=== PATIENT | male | born 1955 | race Hispanic/Latino ===

== ENCOUNTER 2019-05-25 19:38 | Emergency (ER) | payer SELFPAY ==
[~2019-05-25] VITALS: Ht 177.8 cm; Wt 91.2 kg
--- OUTSIDE RECORDS SUMMARY | 2019-05-25 19:41 | XMS REPORT ---
[facility] Address Unknown Phone Unavailable Care Team Providers Care Nephrology Social Worker Name Role Phone Unavailable Unavailable Payers Payer Name Policy Type Policy Number Effective Date Expiration Date Problems This patient has no known problems. Allergies, Adverse Reactions, Alerts Allergy Name Allergy Type Status Severity Reaction(s) Onset Date Inactive Date Treating Clinician Comments No Known Allergies DA Active U 2018-11-19 00:00:00 No Known Allergies DA Active U 2016-04-20 00:00:00 Medications This patient has no known medications. Encounters Start Date/Time End Date/Time Encounter Type Admission Type Attending Clinicians Care Facility Care Department Encounter ID 2019-04-12 06:36:30 Inpatient [facility] [id number] 2019-06-16 00:00:00 2019-06-16 00:00:00 Outpatient [facility] [id number] 2019-05-18 11:44:28 2019-05-18 11:44:28 Emergency [facility] [id number] 2019-05-13 13:43:53 2019-05-13 13:43:53 Emergency [facility] [id number] 2019-05-13 10:29:15 2019-05-13 10:29:15 Emergency [facility] [id number] 2019-05-13 07:28:09 2019-05-13 07:28:09 Emergency [facility] [id number] 2019-05-06 00:00:00 2019-05-06 00:00:00 Outpatient [facility] [id number] 2019-04-11 08:18:09 2019-04-11 08:18:09 Emergency [facility] [id number] 2019-04-11 08:00:04 2019-04-11 08:00:04 Emergency [facility] [id number] 2019-04-11 07:25:20 2019-04-11 07:25:20 Inpatient [facility] [id number] 2018-07-24 00:00:00 2018-07-24 00:00:00 Outpatient [facility] [id number] 2018-06-25 08:36:07 2018-06-25 08:36:07 Outpatient [facility] [id number] 2018-06-17 00:00:00 2018-06-17 00:00:00 Outpatient [facility] [id number] 2018-06-01 00:00:00 2018-06-01 00:00:00 Outpatient [facility] [id number] 2018-05-01 00:00:00 2018-05-01 00:00:00 Outpatient [facility] [id number] 2018-04-21 12:00:35 2018-04-21 12:00:35 Outpatient [facility] [id number] 2018-04-21 11:36:36 2018-04-21 11:36:36 Outpatient [facility] [id number] 2018-04-21 00:00:00 2018-04-21 00:00:00 Outpatient [facility] [id number] 2018-04-09 00:00:00 2018-04-09 00:00:00 Outpatient [facility] [id number] 2018-03-31 09:22:37 2018-03-31 09:22:37 Outpatient [facility] [id number] 2018-03-21 13:39:02 2018-03-21 13:39:02 Outpatient [facility] [id number] 2018-03-18 15:06:02 2018-03-18 15:06:02 Outpatient [facility] [id number] 2018-03-12 10:49:29 2018-03-12 10:49:29 Outpatient [facility] [id number] 2018-01-23 13:36:04 2018-01-23 13:36:04 Outpatient [facility] [id number] 2018-01-23 11:17:57 2018-01-23 11:17:57 Outpatient [facility] [id number] 2017-12-13 14:33:02 2017-12-13 14:33:02 Outpatient [facility] [id number] 2017-12-10 13:58:35 2017-12-10 13:58:35 Outpatient [facility] [id number] 2017-12-10 13:42:22 2017-12-10 13:42:22 Outpatient [facility] [id number] 2017-12-03 00:00:00 2017-12-03 00:00:00 Outpatient [facility] [id number] 2017-11-26 00:00:00 2017-11-26 00:00:00 Outpatient [facility] [id number] 2017-11-26 00:00:00 2017-11-26 00:00:00 Outpatient [facility] [id number] 2017-10-15 14:19:14 2017-10-15 14:19:14 Outpatient [facility] [id number] 2017-10-15 14:08:21 2017-10-15 14:08:21 Outpatient [facility] [id number] 2017-10-09 00:00:00 2017-10-09 00:00:00 Outpatient [facility] [id number] 2017-10-01 08:21:34 2017-10-01 08:21:34 Outpatient [facility] [id number] 2017-09-18 10:35:47 2017-09-18 10:35:47 Outpatient [facility] [id number] 2017-08-25 08:10:47 2017-08-25 08:10:47 Outpatient [facility] [id number] 2017-08-07 10:51:21 2017-08-07 10:51:21 Outpatient [facility] [id number] 2017-07-15 00:00:00 2017-07-15 00:00:00 Outpatient [facility] [id number] 2017-07-04 13:15:31 2017-07-04 13:15:31 Outpatient [facility] [id number] 2017-06-13 07:05:32 2017-06-13 07:05:32 Outpatient [facility] [id number] 2017-06-12 11:24:50 2017-06-12 11:24:50 Outpatient [facility] [id number] 2017-06-12 00:00:00 2017-06-12 00:00:00 Outpatient [facility] [id number] 2017-05-30 13:27:26 2017-05-30 13:27:26 Outpatient [facility] [id number] 2017-05-30 00:00:00 2017-05-30 00:00:00 Outpatient [facility] [id number] 2017-05-22 08:59:39 2017-05-22 08:59:39 Outpatient [facility] [id number] 2017-05-22 08:08:50 2017-05-22 08:08:50 Outpatient [facility] [id number] 2017-05-15 08:58:21 2017-05-15 08:58:21 Outpatient [facility] [id number] 2017-05-15 00:00:00 2017-05-15 00:00:00 Outpatient [facility] [id number] 2017-05-09 00:00:00 2017-05-09 00:00:00 Outpatient [facility] [id number] 2017-05-07 09:07:25 2017-05-07 09:07:25 Outpatient [facility] [id number] 2017-05-02 13:27:29 2017-05-02 13:27:29 Outpatient [facility] [id number] 2017-05-02 10:35:29 2017-05-02 10:35:29 Outpatient [facility] [id number] 2017-05-02 09:51:15 2017-05-02 09:51:15 Outpatient [facility] [id number] 2017-04-22 09:39:48 2017-04-22 09:39:48 Outpatient [facility] [id number] 2017-04-16 00:00:00 2017-04-16 00:00:00 Outpatient [facility] [id number] 2017-04-14 00:00:00 2017-04-14 00:00:00 Outpatient [facility] [id number] 2017-04-11 00:00:00 2017-04-11 00:00:00 Outpatient [facility] [id number] 2017-04-10 10:06:25 2017-04-10 10:06:25 Outpatient [facility] [id number] 2017-04-09 11:29:14 2017-04-09 11:29:14 Outpatient [facility] [id number] 2017-03-28 13:32:51 2017-03-28 13:32:51 Outpatient [facility] [id number] 2017-03-28 00:00:00 2017-03-28 00:00:00 Outpatient [facility] [id number] 2017-03-14 14:15:13 2017-03-14 14:15:13 Outpatient [facility] [id number] 2017-03-14 00:00:00 2017-03-14 00:00:00 Outpatient [facility] [id number] 2017-03-12 07:55:40 2017-03-12 07:55:40 Outpatient [facility] [id number] 2017-03-11 10:16:05 2017-03-11 10:16:05 Outpatient [facility] [id number] 2017-03-11 09:49:11 2017-03-11 09:49:11 Outpatient [facility] [id number] 2017-03-07 10:22:03 2017-03-07 10:22:03 Outpatient [facility] [id number] 2017-03-07 09:38:35 2017-03-07 09:38:35 Outpatient [facility] [id number] 2017-02-28 14:42:00 2017-02-28 14:42:00 Emergency [facility] [id number] 2017-02-28 14:02:53 2017-02-28 14:02:53 Emergency [facility] [id number] 2017-02-28 12:24:00 2017-02-28 12:24:00 Emergency [facility] [id number] 2017-02-22 16:24:41 2017-02-22 16:24:41 Outpatient [facility] [id number] 2017-01-29 18:18:59 2017-01-29 18:18:59 Emergency [facility] [id number]
[2019-05-25 20:11] LABS: BASOPHILS # (AUTO) 0.1 (0.0-0.1); BASOPHILS % 0.4 % (0.0-1.0); EOSINOPHILS % 0.1 % (0.0-6.0); HEMATOCRIT 40.5 % (38.2-49.6); HEMOGLOBIN 14.9 g/dL (14.0-18.0); LYMPHOCYTES # (AUTO) 1.8 (1.0-3.2); LYMPHOCYTES % 14.7 % (18.0-39.1); MEAN CORPUSCULAR HGB CONC 36.8 g/dL (31-35); MEAN CORPUSCULAR VOLUME 97.8 fL (81-99); MONOCYTES # (AUTO) 0.7 (0.2-0.8); MONOCYTES % 5.5 % (4.4-11.3); NEUTROPHILS # (AUTO) 9.7 (2.1-6.9); NEUTROPHILS % 78.7 % (38.7-80.0); PLATELET COUNT 338 x10e3/uL (140-360); RED BLOOD COUNT 4.14 x10e6/uL (4.3-5.7); RED CELL DISTRIBUTION WIDTH 12.8 % (11.7-14.4)
[2019-05-25 20:20] LABS: BILIRUBIN,URINE NEGATIVE (NEGATIVE); CLARITY,URINE SL CLOUDY (CLEAR); COLOR,URINE YELLOW (YELLOW); KETONES,URINE NEGATIVE (NEGATIVE); LEUKOCYTE ESTERASE ,URINE NEGATIVE (NEGATIVE); NITRITE,URINE NEGATIVE (NEGATIVE); PROTEIN,URINE DIPSTICK NEGATIVE (NEGATIVE); URINE UROBILINOGEN 1 mg/dL (0.2 - 1)
--- NOTE | 2019-05-25 20:25 | Diagnostic Imaging Report ---
Examination: Single AP view of the chest. COMPARISON: None. INDICATION: Altered mental status DISCUSSION: Lines/tubes: None. Lungs: The lungs are well inflated and clear. No pneumonia or pulmonary edema. Pleura: No pleural effusion or pneumothorax. Heart and mediastinum: The heart and the mediastinum are unremarkable. Bones and soft tissues: No acute bony abnormalities. IMPRESSION: 1. No acute cardiopulmonary abnormalities. Signed by: Dr. Omar Ruano M.D. on 05/25/2019 8:22 PM
[2019-05-25 20:32] LABS: BACTERIA,URINE FEW /HPF; EPITHELIAL CELLS,URINE MODERATE /LPF
[2019-05-25 20:32] LABS: ALANINE AMINOTRANSFERASE 23 IU/L (0-55); ALBUMIN 2.7 g/dL (3.5-5.0); ALBUMIN/GLOBULIN RATIO 0.6 (0.8-2.0); ALKALINE PHOSPHATASE 81 IU/L (40-150); ANION GAP 13.7 mmol/L (8-16); BLOOD UREA NITROGEN 6 mg/dL (7-26); BUN/CREATININE RATIO 8 (6-25); CALCIUM 9.5 mg/dL (8.4-10.2); CARBON DIOXIDE 23 mmol/L (22-29); CHLORIDE 99 mmol/L (98-107); CREATINE KINASE 14 IU/L (30-200); CREATININE, SERUM 0.77 mg/dL (0.72-1.25); EST GLOMERULAR FILTRATION RATE > 60 ML/MIN (60-); GLUCOSE 195 mg/dL (74-118); LIPASE 16 U/L (8-78); SODIUM 133 mmol/L (136-145)
[2019-05-25 20:39] LABS: POTASSIUM 2.7 mmol/L (3.5-5.1)
[2019-05-25] MEDS ORDERED: POTASSIUM CHLORIDE 10MEQ/100ML 100 ML IV ONE (20:45)
[2019-05-25] MEDS ORDERED: POTASSIUM CHLORIDE 20 MEQ TAB CR PO NR (20:45)
--- NOTE | 2019-05-25 20:46 | Diagnostic Imaging Report ---
Examination: CT head without contrast Clinical Indication: Weakness; confusion. Technique: Transaxial noncontrast images from the skull base through the vertex were obtained. Sagittal and coronal reformatted images were done. Dose modulation, iterative reconstruction, and/or weight based adjustment of the mA/kV was utilized to reduce the radiation dose to as low as reasonably achievable. Comparison: None. Findings: Scalp: No abnormalities. Bones: Intact. No fractures. No blastic lesions. There is a 7.7mm lytic ovoid lesion centered in the outer table of the left frontal calvarium. Brain sulci: Mild volume loss for patient's age. Ventricles: No hydrocephalus. Extra-axial space: No abnormalities. Parenchyma: There are confluent areas of low-attenuation within subcortical and periventricular white matter, nonspecific, but could represent microvascular ischemic disease. No masses, hemorrhage, or acute or chronic cortical based vascular insults. Suprasellar region: No abnormalities. Craniocervical junction: The foramen magnum is patent. No Chiari one malformation. Incidental findings: Atherosclerotic calcification of the cavernous and supraclinoid internal carotid arteries. Impression: 1. No acute intracranial finding. 2. A 7.7mm lytic lesion of the left frontal bone, which could represent an intraosseous hemangioma; however, given recent history of mass on kidney, metastasis cannot be excluded. 3. Mild chronic microvascular ischemic change and volume loss. Signed by: Dr. Hannah Grant M.D. on 05/25/2019 8:43 PM
[2019-05-25] MEDS ORDERED: SODIUM CHLORIDE 0.9% 500ML 500 ML ONE (21:23)
[2019-05-25 22:55] VITALS: BP 106/77
== END 2019-05-25 23:10 | disposition home or self-care (01) ==
LOC: ER 19:38
DX: R53.1 Weakness (principal); E87.6 Hypokalemia; K52.9 Noninfective gastroenteritis and colitis, unspecified
CPT/HCPCS: 36415; 70450; 71045; 80053; 81001; 82140; 82550; 82553; 83690; 83880; 84484; 85025; 93005; 99284; J3480; J7040